=== PATIENT | male | born 1955 | race Caucasian/White ===

== ENCOUNTER → 2017-03-28 | Outpatient (CLI) | payer BC ==
[~2017-03-28] MED LIST: ACET-1256 PO; ALPR-411 PO; ASPEC81 PO; CHOL400T PO; COLL1CAP PO; GLUCTAB7 PO; HYDR-3983 PO; LUTE20CA PO
[2017-03-28 11:13] LABS: BASO % 0.2 %; BASO ABS # 0.01 K/uL (0-0.2); COMPLETE YES; EOS % 2.4 %; HEMATOCRIT 44.5 % (42-52); LYMPH % 36.4 %; MEAN CELL VOLUME 91.9 fL (80-100); MEAN CORPUSCULAR HGB CONC 33.7 g/dl (32-36); MEAN PLATELET VOLUME 9.7 fL (7.4-10.4); MONO % 7.7 %; NEUT % 53.3 %; PLATELET COUNT 257 K/uL (130-400); RED BLOOD COUNT 4.84 M/uL (4.7-6.1); WHITE BLOOD COUNT 4.94 K/uL (4.8-10.8)
[2017-03-28 11:36] LABS: ALKALINE PHOSPHATASE 58 U/L (45-117); ALT/SGPT 25 U/L (12-78); AST/SGOT 17 U/L (15-37); BLOOD UREA NITROGEN 17 mg/dl (7-18); BUN/CREATININE RATIO 17.3 (10-20); CARBON DIOXIDE 29 mmol/L (21-32); CHLORIDE 103 mmol/L (98-107); CHOLESTEROL 215 mg/dl (0-200); CHOLESTEROL/HDL RATIO 4.3; GLUCOSE 101 mg/dl (70-99); HDL CHOLESTEROL 50 mg/dl; LDL CHOLESTEROL CALCULATED 149 mg/dl; POTASSIUM 3.8 mmol/L (3.5-5.1); SODIUM 139 mmol/L (136-145); TRIGLYCERIDES 82 mg/dl (0-150); VERY LOW DENSITY LIPOPROT CALC 16 mg/dl
[2017-03-28 11:40] LABS: PROSTATE SPECIFIC ANTIGEN 0.569 ng/ml (0.000-4.000)
--- NOTE | 2017-04-03 09:46 | CODING QUERY MEDICAL NECESSITY ---
SUPPORTING DIAGNOSIS NEEDED A supporting diagnosis is required for the test/procedure performed on this patient in order for us to be reimbursed by the patient's insurance. Please provide a supporting diagnosis for the following test/procedure listed below next to the test name along with your signature. *If there is no additional diagnosis for this patient that would support the following test/procedure please document that below next to the test/procedure. Test(s)/Procedure(s) that require a supporting diagnosis: * PSA DIAGNOSIS: Provider Signature: Date: Thank you Ann Soares [employer] Once completed, please kindly fax back to [phone] For questions please call [phone]
== END | disposition home or self-care (01) ==
LOC: C.LABBC 07:53
PROVIDERS: ATTEND Internal Medicine
DX: Z00.00 Encounter for general adult medical examination without abnormal findings (principal); Z12.5 Encounter for screening for malignant neoplasm of prostate

== ENCOUNTER → 2017-05-19 | Outpatient (CLI) | payer BC | END | disposition home or self-care (01) | LOC: C.LABSPEC 13:52 | PROVIDERS: ATTEND Internal Medicine | DX: R39.9 Unspecified symptoms and signs involving the genitourinary system (principal); R35.0 Frequency of micturition; R35.1 Nocturia ==

== ENCOUNTER → 2017-06-01 | Outpatient (CLI) | payer BC ==
[~2017-06-01] MED LIST changes: +OPTIRAY 320 IV PRN
--- NOTE | 2017-06-01 07:58 | DIAGNOSTIC IMAGING REPORT ---
ABD/PELVIS COMBO HISTORY: 62 years-old Male N39.0 UTI (urinary tract infection)R31.29 Hematuria, microscopic COMPARISON: None available TECHNIQUE: Multiple axial CT images of the abdomen and pelvis were obtained both with and without the use of 92 mL Optiray 320. A dose lowering technique was used consistent with the principals of [employer]. FINDINGS: 9 mm thin-walled subpleural cyst involves the right middle lobe. There is minimal dependent bibasilar atelectasis. There is no pneumoperitoneum. The imaged inferior cardiac chambers are unremarkable without pericardial effusion. The liver, gallbladder, spleen, pancreas and right adrenal gland are unremarkable. There is nodular thickening of the left adrenal gland suggesting hyperplasia. The noncontrast study demonstrates no renal or ureteral calculi. No hydronephrosis. There is a nonenhancing 7 x 10 mm exophytic low attenuating lesion of the posterior interpolar right kidney suggesting cyst with similar appearing 8 mm lesion seen within the superior pole right kidney. No filling defects are seen within the collecting systems or ureters. Prostate is enlarged measuring up to 4.7 cm transversely. Prostate appears to protrude into the urinary bladder floor. 2.2 x 2.2 cm focus along the floor the bladder suggests prostate parenchyma. There is thickening of the urinary bladder wall. There is mild atherosclerotic plaquing of the abdominal aorta. There is no bulky retroperitoneal adenopathy identified. There is no bowel obstruction. Moderate volume of formed stool is present throughout the colon which may reflect constipation. The appendix appears normal. Soft tissues are unremarkable. The bones are intact. Moderate intervertebral disc space narrowing is seen at L5-S1 with associated facet arthrosis at IMPRESSION: 1. No renal calculi or hydronephrosis. 2. Nodularity with exophytic soft tissue prominence at the floor of the urinary bladder is noted with associated urinary bladder wall thickening suggesting prostatomegaly with associated mass effect and sequela of chronic bladder outlet obstruction. Underlying mural based intraluminal bladder neoplasm is thought to be less likely, however could be correlated with cystoscopy. 3. Upper renal collecting systems and ureters appear normal. Probable right renal cysts. The above report was generated using voice recognition software. It may contain grammatical, syntax or spelling errors. Electronically signed by: Terrell Guillermo M.D. 06/01/2017 7:57 AM Dictated Date/Time: 06/01/2017 7:44 AM
== END | disposition home or self-care (01) ==
LOC: C.CTS 07:13
PROVIDERS: ATTEND Urology
DX: N39.0 Urinary tract infection, site not specified (principal); R31.29 Other microscopic hematuria; R93.41 Abnormal radiologic findings on diagnostic imaging of renal pelvis, ureter, or bladder